=== PATIENT | female | born 1990 | race Hispanic/Latino ===

== ENCOUNTER 2018-06-04 18:45 | Emergency (ER) | payer SELFPAY ==
[2018-06-04 19:48] LABS: Urine Bacteria 20-50 /HPF (<20); Urine Culture Reflex Order NOT NEEDED
[2018-06-04 19:49] LABS: Urine Mucus 2+ /HPF (NONE SEEN)
[2018-06-04 19:49] LABS: Urine Blood 1+ (NEG); Urine Glucose NEGATIVE (NEG); Urine Protein NEGATIVE (NEG); Urine Specific Gravity 1.025 (1.005-1.030); Urine pH 5.5 (5.0-7.0)
[2018-06-04 19:55] LABS: Potassium 3.5 mmol/L (3.5-5.1)
[2018-06-04 20:03] LABS: Absolute Lymphocytes (CBC) 2.2 K/uL (0.7-4.9); Absolute Monocytes 0.4 K/uL (0.1-1.3); Absolute Neutrophil 9.4 K/uL (1.8-8.0); Basophils % 0.4 % (0-1.3); Lymphocytes % 18.1 % (15.3-44.8); MCH 29.1 pg (27.0-35.0); MCV 87.9 fL (80-100); MPV 9.1 fL (7.6-11.3); Monocytes % 3.6 % (3.3-12.3); RBC Red Blood Cell Count 4.55 M/uL (3.86-4.86)
[2018-06-04] MEDS ORDERED: KETOROLAC 30 MG/ML INJ ONE (20:04)
--- NOTE | 2018-06-04 20:09 | RAD REPORT ---
EXAM DESCRIPTION: CT - Stone Protocol - 06/04/2018 7:50 pm CLINICAL HISTORY: Abdominal pain. Lower abdominal pain. Urinary tract infection COMPARISON: October 2017 TECHNIQUE: Computed axial tomography of the abdomen pelvis was obtained without oral or IV contrast. Lack of IV and oral contrast limits evaluation of solid organs, bowel, and vessels. Coronal reformat nigel images were obtained and reviewed. All CT scans are performed using dose optimization technique as appropriate and may include automated exposure control or mA/KV adjustment according to patient size. FINDINGS: A tiny nonobstructing left renal calculus is seen. A right renal calculus is not noted. An ureteral calculus is not noted. A bladder calculus is not present. The liver, spleen, pancreas and adrenals appear grossly normal There is no evidence of diverticulitis. The appendix appears normal A 37 millimeter left ovarian cyst is suspected without significant free-fluid IMPRESSION: Tiny nonobstructing left renal calculus 37 millimeter left ovarian cyst without significant free-fluid
[2018-06-04] MEDS ORDERED: CEFTRIAXONE 1000 MG/VIAL ONE (20:23)
[2018-06-04] MEDS ORDERED: NA CHLORIDE 0.9% 100 ML IV ONE (20:23)
--- NOTE | 2018-06-04 20:25 | EDPHYS ---
Physician Documentation [facility] Name: Nisa Muñoz Age: 27 yrs Sex: Female : 1990 Arrival Date: 06/04/2018 Time: 18:48 Bed 7 Private MD: Unknown, Unknown ED Physician Tony Francis HPI: 06/04 20:21 This 27 yrs old Female presents to ER via Ambulatory with complaints of gs Urinary Problem. 20:21 The patient presents with urinary symptoms, dysuria, hesitancy, urgency. Onset: The gs symptoms/episode began/occurred 3 week(s) ago. Modifying factors: The symptoms are alleviated by nothing, the symptoms are aggravated by nothing. Associated signs and symptoms: Pertinent positives: urinary frequency, Pertinent negatives: fever. Severity of symptoms: At their worst the symptoms were moderate, in the emergency department the symptoms are unchanged. tried some amoxicillin 3 weeks ago. 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 - Social history:: Smoking status: Patient uses tobacco products, 6 cigarettes a day. - Ebola Screening: : Patient denies travel to an Ebola-affected area in the 21 days before illness onset. ROS: 20:21 Back: Positive for flank pain, bilaterally. gs 20:21 MS/extremity: Positive for swelling. 20:21 All other systems are negative. Exam: 20:21 Head/Face: Normocephalic, atraumatic. Eyes: Pupils equal round and reactive to light, gs extra-ocular motions intact. Lids and lashes normal. Conjunctiva and sclera are non-icteric and not injected. Cornea within normal limits. Periorbital areas with no swelling, redness, or edema. ENT: Nares patent. No nasal discharge, no septal abnormalities noted. Tympanic membranes are normal and external auditory canals are clear. Oropharynx with no redness, swelling, or masses, exudates, or evidence of obstruction, uvula midline. Mucous membranes moist. Neck: Trachea midline, no thyromegaly or masses palpated, and no cervical lymphadenopathy. Supple, full range of motion without nuchal rigidity, or vertebral point tenderness. No Meningismus. Chest/axilla: Normal chest wall appearance and motion. Nontender with no deformity. No lesions are appreciated. Cardiovascular: Regular rate and rhythm with a normal S1 and S2. No gallops, murmurs, or rubs. Normal PMI, no JVD. No pulse deficits. Respiratory: Lungs have equal breath sounds bilaterally, clear to auscultation and percussion. No rales, rhonchi or wheezes noted. No increased work of breathing, no retractions or nasal flaring. Abdomen/GI: Soft, non-tender, with normal bowel sounds. No distension or tympany. No guarding or rebound. No evidence of tenderness throughout. 20:21 Constitutional: The patient appears alert, awake. 20:21 Back: CVA tenderness, that is mild, is noted bilaterally. 20:21 Musculoskeletal/extremity: Circulation is intact in all extremities. Edema, trace lower extremities. Vital Signs: 18:51 BP 122 / 79; Pulse 94; Resp 17; Temp 97.6(TE); Pulse Ox 100% on R/A; Pain 10/10; tw2 19:15 BP 135 / 91; Pulse 85; Resp 16; Pulse Ox 98% ; bp 20:00 BP 128 / 74; Pulse 88; Resp 16; Pulse Ox 98% ; bp MDM: 19:14 Patient medically screened. 20:21 Differential diagnosis: urinary tract infection, arf, pyelonephritis. Data reviewed: vital signs, nurses notes. Counseling: I had a detailed discussion with the patient and/or guardian regarding: the historical points, exam findings, and any diagnostic results supporting the discharge/admit diagnosis, lab results, radiology results, the need for outpatient follow up. Response to treatment: the patient's symptoms have mildly improved after treatment, and as a result, I will discharge patient. 06/04 19:12 Order name: Urine Culture 06/04 19:12 Order name: Urine Microscopic Only; Complete Time: 20:13 06/04 19:14 Order name: CBC with Diff; Complete Time: 20:13 06/04 19:14 Order name: Basic Metabolic Panel; Complete Time: 20:13 06/04 19:44 Order name: Urine Dipstick--Ancillary (enter results); Complete Time: 20:13 sc 06/04 19:44 Order name: Urine --Ancillary (enter results); Complete Time: 20:13 mt 06/04 19:12 Order name: Urine Dipstick-Ancillary (obtain specimen); Complete Time: 19:21 bp 06/04 19:12 Order name: Urine Test (obtain specimen); Complete Time: 19:21 bp 06/04 19:15 Order name: CT Stone Protocol; Complete Time: 20:13 Administered Medications: 20:00 Drug: Ketorolac 15 mg Route: IVP; Site: right antecubital; bp 20:15 Follow up: Response: Pain is decreased bp 20:17 Drug: Rocephin - (cefTRIAXone) 1 grams Route: IVPB; Infused Over: 30 mins; Site: right bp antecubital; Disposition: 06/04/18 20:24 Discharged to Home. Impression: Tubulo-interstitial nephritis, not specified as acute or chronic, Edema, unspecified. - Condition is Stable. - Discharge Instructions: Edema, Pyelonephritis, Adult. - Prescriptions for Keflex 500 mg Oral Capsule - take 2 capsule by ORAL route every 12 hours for 7 days; 28 capsule. - Medication Reconciliation Form, Thank You Letter, Antibiotic Education, Prescription Opioid Use form. - Follow up: Germaine Hackett DO; When: 2 - 3 days; Reason: Re-evaluation by your physician. Signatures: Dispatcher [employer] Alpa Russo RN RN tw2 Tony Francis MD MD Dev Young RN RN bp Vicky Preston cc3 Corrections: (The following items were deleted from the chart) 20:40 20:24 06/04/2018 20:24 Discharged to Home. Impression: Tubulo-interstitial nephritis, cc3 not specified as acute or chronic; Edema, unspecified. Condition is Stable. Forms are Medication Reconciliation Form, Thank You Letter, Antibiotic Education, Prescription Opioid Use. Follow up: Germaine Hackett; When: 2 - 3 days; Reason: Re-evaluation by your physician. gs
--- NOTE | 2018-06-04 20:25 | ER ---
Nurse's Notes [facility] Name: Nisa Muñoz Age: 27 yrs Sex: Female : 1990 Arrival Date: 06/04/2018 Time: 18:48 Bed 7 Private MD: Unknown, Unknown Diagnosis: Tubulo-interstitial nephritis, not specified as acute or chronic;Edema, unspecified Presentation: 06/04 18:50 Presenting complaint: Patient states: i am having low back pain and lower abdomen pain, tw2 i have been having a UTI for a month, and my feet have been swelling for a month, i have an appointment in June, and i have been vomiting. Transition of care: patient was not received from another setting of care. Onset of symptoms was June 04, 2018. Risk Assessment: Do you want to hurt yourself or someone else? Patient reports no desire to harm self or others. Initial Sepsis Screen: Does the patient meet any 2 criteria? No. Patient's initial sepsis screen is negative. Does the patient have a suspected source of infection? No. Patient's initial sepsis screen is negative. Care prior to arrival: None. 18:50 Method Of Arrival: Ambulatory tw2 18:50 Acuity: MIGUEL ANGEL 3 tw2 Triage Assessment: 19:00 General: Appears in no apparent distress. uncomfortable, obese, Behavior is calm, bp cooperative, appropriate for age. 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 - Social history:: Smoking status: Patient uses tobacco products, 6 cigarettes a day. - Ebola Screening: : Patient denies travel to an Ebola-affected area in the 21 days before illness onset. Screenin:22 Abuse screen: Denies threats or abuse. Denies injuries from another. Nutritional bp screening: No deficits noted. Tuberculosis screening: No symptoms or risk factors identified. Fall Risk None identified. Assessment: 19:00 General: Appears in no apparent distress. uncomfortable, obese, Behavior is bp cooperative, appropriate for age, anxious. Pain: Complains of pain in low back area and pelvis. Neuro: Level of Consciousness is awake, alert, obeys commands, Oriented to person, place, time, situation, Appropriate for age. Cardiovascular: No deficits noted. Respiratory: Airway is patent Respiratory effort is even, unlabored, Respiratory pattern is regular, symmetrical. GI: No signs and/or symptoms were reported involving the gastrointestinal system. : Reports burning with urination, incontinence, urgency, urinary frequency. EENT: No deficits noted. Derm: No deficits noted. Musculoskeletal: Circulation, motion, and sensation intact. Range of motion: intact in all extremities. 20:01 Reassessment: PT RETURNED FROM CT. ALL CURRENT STUDIES IN PROCESS, RESULTS PENDING. bp 20:30 Reassessment: Patient appears in no apparent distress at this time. Patient and/or cc3 family updated on plan of care and expected duration. Pain level reassessed. Patient is alert, oriented x 3, equal unlabored respirations, skin warm/dry/pink. Patient ordered discharged home by Dr. Francis. IV cannula removed and patient left ER vitally stable and ambulatory. Vital Signs: 18:51 BP 122 / 79; Pulse 94; Resp 17; Temp 97.6(TE); Pulse Ox 100% on R/A; Pain 10/10; tw2 19:15 BP 135 / 91; Pulse 85; Resp 16; Pulse Ox 98% ; bp 20:00 BP 128 / 74; Pulse 88; Resp 16; Pulse Ox 98% ; bp ED Course: 18:48 Patient arrived in ED. sb2 18:48 Unknown, Unknown is Private Physician. sb2 18:51 Triage completed. tw2 18:51 Arm band placed on. tw2 19:08 Tony Francis MD is Attending Physician. gs 19:11 Dev Young, SOLITARIO is Primary Nurse. bp 19:22 Patient has correct armband on for positive identification. Bed in low position. Call bp light in reach. Side rails up X2. 19:23 Urine collected: clean catch specimen, cloudy. bp 19:30 Inserted saline lock: 20 gauge in right antecubital area, using aseptic technique. bp Blood collected. 19:30 Initial lab(s) drawn, by me, sent to lab. bp 19:47 Patient moved to NC via wheelchair. jj2 19:50 CT completed. Patient tolerated procedure well. Patient moved back from CT. jj2 19:50 CT Stone Protocol In Process Unspecified. EDMS 20:24 Germaine Hackett DO is Referral Physician. gs 20:30 No provider procedures requiring assistance completed. IV discontinued, intact, cc3 bleeding controlled, No redness/swelling at site. Pressure dressing applied. Administered Medications: 20:00 Drug: Ketorolac 15 mg Route: IVP; Site: right antecubital; bp 20:15 Follow up: Response: Pain is decreased bp 20:17 Drug: Rocephin - (cefTRIAXone) 1 grams Route: IVPB; Infused Over: 30 mins; Site: right bp antecubital; Outcome: 20:24 Discharge ordered by MD. gs 20:30 Discharged to home ambulatory. cc3 20:30 Condition: stable 20:30 Discharge instructions given to patient, Instructed on discharge instructions, follow up and referral plans. medication usage, Demonstrated understanding of instructions, follow-up care, medications, Prescriptions given X 1. 20:40 Patient left the ED. cc3 Signatures: Dispatcher [employer] EDMS Daniel Rodriguez jj2 Alpa Vitale, RN RN tw2 Tony Francis MD MD gs Peltier, Brian, RN RN Leyla Mccullough sb2 Vicky Preston cc3
== END 2018-06-04 20:40 | disposition home or self-care (01) ==
LOC: ER 18:45
DX: N12 Tubulo-interstitial nephritis, not specified as acute or chronic (principal); R60.9 Edema, unspecified; F17.210 Nicotine dependence, cigarettes, uncomplicated
CPT/HCPCS: 36415; 74176; 76377; 80048; 81003; 81015; 81025; 85025; 87086; 87088

== ENCOUNTER 2018-12-03 10:29 | Emergency (ER) | payer SELFPAY ==
--- OUTSIDE RECORDS SUMMARY | 2018-12-03 10:48 | XMS REPORT ---
:1990 [facility] [address] [place] [id number] Care Team Providers Name Role Phone Unavailable Unavailable Unavailable Problems This patient has no known problems. Allergies, Adverse Reactions, Alerts This patient has no known allergies or adverse reactions. Medications This patient has no known medications.
[2018-12-03 11:32] LABS: Absolute Lymphocytes (CBC) 2.6 K/uL (0.7-4.9); Absolute Monocytes 0.5 K/uL (0.1-1.3); Absolute Neutrophil 7.9 K/uL (1.8-8.0); Basophils % 0.7 % (0-1.3); Eosinophils % 3.3 % (0-4.4); Hematocrit 39.2 % (36.0-45.0); Lymphocytes % 22.6 % (15.3-44.8); MPV 8.7 fL (7.6-11.3); RBC Red Blood Cell Count 4.54 M/uL (3.86-4.86)
[2018-12-03 12:05] LABS: ALT/SGPT 23 U/L (12-78); AST/SGOT 13 U/L (15-37); Alkaline Phosphatase 108 U/L (45-117); BUN Blood Urea Nitrogen 8 mg/dL (7-18); Bicarbonate 25 mmol/L (21-32); Bilirubin Direct < 0.1 mg/dL (0-0.2); Bilirubin Total 0.2 mg/dL (0.2-1.0); Glucose Level 86 mg/dL (74-106); Lipase 103 U/L (73-393); Potassium 3.9 mmol/L (3.5-5.1); Protein, Total 7.1 g/dL (6.4-8.2); Sodium Level 143 mmol/L (136-145)
[2018-12-03] MEDS ORDERED: MORPHINE 4 MG/ML SYR ONE (12:24)
[2018-12-03] MEDS ORDERED: ONDANSETRON 4 MG/2 ML VIAL ONE (12:25)
[2018-12-03] MEDS ORDERED: NA CHLORIDE 0.9% 1,000 ML ONE (12:25)
[2018-12-03] MEDS ORDERED: FAMOTIDINE 20 MG/2 ML VIAL IV ONE (12:25)
--- NOTE | 2018-12-03 14:17 | RAD REPORT ---
EXAM DESCRIPTION: CT - Abdomen Pelvis W Contrast - 12/03/2018 2:05 pm CLINICAL HISTORY: Abdominal pain, epigastric pain COMPARISON: October 2016 TECHNIQUE: Biphasic, helical CT imaging of the abdomen and pelvis was performed following 100 ml non -ionic IV contrast. Oral contrast was given. All CT scans are performed using dose optimization technique as appropriate and may include automated exposure control or mA/KV adjustment according to patient size. FINDINGS: No suspicious findings in the lung bases. The liver, spleen, and pancreas show no suspicious findings. Gallbladder and biliary tree are also wi thout suspicious finding. Symmetric renal function is seen with no hydronephrosis or suspicious renal mass. No pyelonephritis o r acute parenchymal process. Urinary bladder is fully contracted limiting assessment. No bladder calc ulus seen. Uterus and ovaries show no suspicious findings. Left ovarian calcifications are stable. No adrenal abnormalities. No dilated bowel loops or bowel wall thickening. No appendicitis. No free air, free fluid or inflamma tory stranding. No hernia, mass or bulky lymphadenopathy. No suspicious bony findings. IMPRESSION: Contrast enhanced CT abdomen and pelvis showing no significant or suspicious finding. No significant change from comparison.
[2018-12-03 14:44] LABS: Urine Blood 2+ (NEG); Urine Glucose NEGATIVE (NEG); Urine Protein NEGATIVE (NEG); Urine pH 6.5 (5.0-7.0)
--- NOTE | 2018-12-03 15:47 | ER ---
Nurse's Notes [facility] Name: Nisa Muñoz Age: 28 yrs Sex: Female : 1990 Arrival Date: 12/03/2018 Time: 10:34 Bed 18 Private MD: Diagnosis: Upper abdominal pain, unspecified Presentation: 12/03 10:48 Presenting complaint: Patient states: epigastric and RUQ pain x 1 day. c/o n/d. sv Transition of care: patient was not received from another setting of care. Onset of symptoms was December 02, 2018. Care prior to arrival: None. 10:48 Method Of Arrival: Ambulatory sv 10:48 Acuity: MIGUEL ANGEL 3 sv 17:02 Risk Assessment: Do you want to hurt yourself or someone else? Patient reports no aj1 desire to harm self or others. Initial Sepsis Screen: Does the patient meet any 2 criteria? No. Patient's initial sepsis screen is negative. Does the patient have a suspected source of infection? Yes: Acute abdominal pain. Triage Assessment: 10:49 General: Appears in no apparent distress. uncomfortable, well developed, Behavior is. sv Pain: Complains of pain in epigastric area and right upper quadrant Pain currently is 7 out of 10 on a pain scale. Neuro: Level of Consciousness is awake, alert, obeys commands, Oriented to person, place, time, situation. Respiratory: Respiratory effort is even, unlabored, Respiratory pattern is regular, symmetrical. GI: Reports diarrhea, nausea. Historical: - Allergies: 10:49 NKA; sv - PMHx: 10:49 None; sv - PSHx: 10:49 ; Tubal ligation; sv - Immunization history:: Adult Immunizations up to date. - Social history:: Smoking status: unknown. - Ebola Screening: : Patient denies travel to an Ebola-affected area in the 21 days before illness onset. Screenin:21 Abuse screen: Denies threats or abuse. Denies injuries from another. Nutritional aj1 screening: No deficits noted. Tuberculosis screening: No symptoms or risk factors identified. 17:02 Fall Risk None identified. aj1 Assessment: 11:21 General: Appears in no apparent distress. uncomfortable, Behavior is calm, cooperative, aj1 appropriate for age. Pain: Complains of pain in right upper quadrant and epigastric area Pain radiates to back Quality of pain is described as heavy, pressure, sharp, Is intermittent. Neuro: Level of Consciousness is awake, alert, obeys commands, Oriented to person, place, time, situation. Cardiovascular: Patient's skin is warm and dry. Respiratory: Airway is patent Respiratory effort is even, unlabored, Respiratory pattern is regular, symmetrical. GI: Abdomen is non-distended, Bowel sounds present X 4 quads. Abd is soft X 4 quads Abdomen is tender to palpation in epigastric area and right upper quadrant Reports diarrhea, nausea, Patient currently denies vomiting. : No signs and/or symptoms were reported regarding the genitourinary system. EENT: No signs and/or symptoms were reported regarding the EENT system. Derm: No signs and/or symptoms reported regarding the dermatologic system. Skin is pink, warm \T\ dry. normal. Musculoskeletal: No signs and/or symptoms reported regarding the musculoskeletal system. Circulation, motion, and sensation intact. 12:22 Reassessment: PO CONTRAST COMPLETED, CT NOTIFIED. bp 12:54 Reassessment: Patient appears in no apparent distress at this time. No changes from aj1 previously documented assessment. Patient and/or family updated on plan of care and expected duration. Pain level reassessed. Patient is alert, oriented x 3, equal unlabored respirations, skin warm/dry/pink. Patient reports that her pain has decreased to a tolerable level. 13:45 Reassessment: Patient appears in no apparent distress at this time. No changes from aj1 previously documented assessment. Patient and/or family updated on plan of care and expected duration. Pain level reassessed. Patient is alert, oriented x 3, equal unlabored respirations, skin warm/dry/pink. 14:45 Reassessment: Patient appears in no apparent distress at this time. No changes from aj1 previously documented assessment. Patient and/or family updated on plan of care and expected duration. Pain level reassessed. Patient is alert, oriented x 3, equal unlabored respirations, skin warm/dry/pink. 15:30 Reassessment: Patient states that her pain is coming back, but she doesn't want the aj1 morphine because she does not like the way that it makes her feel. Notified SOLEDAD Harris. 16:45 Reassessment: Patient appears in no apparent distress at this time. No changes from aj1 previously documented assessment. Patient and/or family updated on plan of care and expected duration. Pain level reassessed. Patient is alert, oriented x 3, equal unlabored respirations, skin warm/dry/pink. 17:02 Reassessment: Patient states that she is tolerating drinking liquids and she is feeling aj1 better, she is ready to be discharged. Vital Signs: 10:49 BP 120 / 62; Pulse 79; Resp 22; Temp 97.4; Pulse Ox 99% ; Weight 104.33 kg; Height 5 sv ft. 1 in. (154.94 cm); Pain 7/10; 11:45 BP 110 / 57; Pulse 79; Resp 18; Pulse Ox 100% ; aj1 12:45 BP 114 / 72; Pulse 70; Resp 18; Pulse Ox 100% on R/A; aj1 13:45 BP 101 / 58; Pulse 75; Resp 18; Pulse Ox 100% on R/A; aj1 14:45 BP 108 / 70; Pulse 67; Resp 18; Pulse Ox 100% on R/A; aj1 15:45 BP 105 / 71; Pulse 82; Resp 18; Pulse Ox 100% on R/A; aj1 16:45 BP 100 / 64; Pulse 70; Resp 18; Pulse Ox 100% on R/A; aj1 10:49 Body Mass Index 43.46 (104.33 kg, 154.94 cm) sv ED Course: 10:34 Patient arrived in ED. tw3 10:48 Triage completed. sv 10:49 Arm band placed on. sv 10:57 Wolfgang Hines PA is PHCP. cp 10:57 Britton Gallego MD is Attending Physician. cp 11:00 Veronica Rouse, RN is Primary Nurse. aj1 11:21 Patient has correct armband on for positive identification. Bed in low position. Call aj1 light in reach. Side rails up X 1. 11:21 No provider procedures requiring assistance completed. Initial lab(s) drawn, by , jon sent to lab. Urine collected:. Inserted saline lock: 22 gauge in right antecubital area, using aseptic technique. Blood collected. 12:08 US Abdomen Limited In Process Unspecified. EDMS 14:06 CT Abd/Pelvis - W/Contrast: give oral contrast In Process Unspecified. EDMS 15:45 Britton Tim MD is Referral Physician. cp 17:02 IV discontinued, intact, bleeding controlled, No redness/swelling at site. Pressure aj1 dressing applied. Administered Medications: 12:19 Drug: NS 0.9% 1000 ml Route: IV; Rate: 1 bolus; Site: right antecubital; bp 17:00 Follow up: IV Status: Completed infusion; IV Intake: 1000ml aj1 12:20 Drug: morphine 4 mg Route: IVP; Site: right antecubital; bp 15:52 Follow up: Response: No adverse reaction; Pain is decreased aj1 12:21 Drug: Zofran 4 mg Route: IVP; Site: right antecubital; bp 15:52 Follow up: Response: No adverse reaction aj1 12:21 Drug: Pepcid 20 mg Route: IVP; Site: right antecubital; bp 15:52 Follow up: Response: No adverse reaction; Pain is decreased aj1 15:51 Drug: TORadol 30 mg Route: IVP; Site: right antecubital; aj1 17:01 Follow up: Response: No adverse reaction aj1 15:52 Drug: GI Cocktail without - (Maalox Suspension 30 ml, Lidocaine Liquid 2 % 15 aj1 ml) Route: PO; 17:01 Follow up: Response: No adverse reaction aj1 Intake: 17:00 IV: 1000ml; Total: 1000ml. aj1 Outcome: 15:46 Discharge ordered by . cp 17:03 Discharged to home ambulatory. aj1 17:03 Condition: good 17:03 Discharge instructions given to patient, Instructed on discharge instructions, follow up and referral plans. Demonstrated understanding of instructions, follow-up care, Prescriptions given X 2. 17:05 Patient left the ED. aj1 Signatures: Dispatcher [employer] EDMS Veronica Rouse RN RN aj1 Tawny Sloan RN RN Wolfgang Tello PA PA marty Mcwilliams, Antoinette tw3 Dev Young RN RN bp
--- NOTE | 2018-12-03 15:47 | EDPHYS ---
Physician Documentation [facility] Name: Nisa Muñoz Age: 28 yrs Sex: Female : 1990 Arrival Date: 12/03/2018 Time: 10:34 Bed 18 Private MD: ED Physician Britton Gallego HPI: 12/03 11:30 This 28 yrs old Female presents to ER via Ambulatory with complaints of cp Abdominal Pain. 11:30 The patient presents with abdominal pain in the epigastric area, in the right upper cp quadrant. Onset: The symptoms/episode began/occurred last night. The symptoms radiate to back. Associated signs and symptoms: Pertinent positives: diarrhea, nausea, Pertinent negatives: blood in stools, chest pain, constipation, dysuria, fever, palpitations, vomiting. The symptoms are described as constant. Modifying factors: the symptoms are aggravated by pressure. Severity of pain: in the emergency department the pain is actually worse moderately. Historical: - Allergies: 10:49 NKA; sv - PMHx: 10:49 None; sv - PSHx: 10:49 ; Tubal ligation; sv - Immunization history:: Adult Immunizations up to date. - Social history:: Smoking status: unknown. - Ebola Screening: : Patient denies travel to an Ebola-affected area in the 21 days before illness onset. ROS: 11:31 Eyes: Negative for injury, pain, redness, and discharge. cp 11:31 Constitutional: Negative for body aches, chills, fever, poor PO intake. 11:31 ENT: Negative for drainage from ear(s), ear pain, sore throat, difficulty swallowing, difficulty handling secretions. 11:31 Cardiovascular: Negative for chest pain, edema, palpitations. 11:31 Respiratory: Negative for cough, shortness of breath, wheezing. 11:31 Abdomen/GI: Positive for abdominal pain, nausea, diarrhea, Negative for vomiting, constipation, black/tarry stool, rectal bleeding. 11:31 Back: Positive for radiated pain, of the mid back area. 11:31 : Negative for urinary symptoms. 11:31 Skin: Negative for cellulitis, rash. 11:31 Neuro: Negative for altered mental status, headache, weakness. 11:31 All other systems are negative. Exam: 11:33 Head/Face: Normocephalic, atraumatic. cp 11:33 Constitutional: The patient appears in no acute distress, alert, awake, non-diaphoretic, non-toxic, well developed, well nourished, obese, uncomfortable. 11:33 Eyes: Periorbital structures: appear normal, Conjunctiva: normal, no exudate, no injection, Sclera: no appreciated abnormality, Lids and lashes: appear normal, bilaterally. 11:33 ENT: External ear(s): are unremarkable, Nose: is normal, Mouth: Lips: moist, Oral mucosa: pink and intact, moist, Posterior pharynx: Airway: no evidence of obstruction, patent. 11:33 Neck: ROM/movement: is normal, is supple, without pain, no range of motions limitations, no nuchal rigidity. 11:33 Chest/axilla: Inspection: normal, Palpation: is normal, no crepitus, no tenderness. 11:33 Cardiovascular: Rate: normal, Rhythm: regular. 11:33 Respiratory: the patient does not display signs of respiratory distress, Respirations: normal, no use of accessory muscles, no retractions, no splinting, no tachypnea, labored breathing, is not present, Breath sounds: are clear throughout, no decreased breath sounds, no stridor, no wheezing. 11:33 Abdomen/GI: Inspection: abdomen appears normal, Bowel sounds: active, all quadrants, Palpation: soft, in all quadrants, severe abdominal tenderness, in the epigastric area and right upper quadrant, rebound tenderness, is not appreciated, voluntary guarding, is elicited in the epigastric area and right upper quadrant. 11:33 Back: pain, that is moderate, of the mid back area. 11:33 Skin: no rash present. Vital Signs: 10:49 BP 120 / 62; Pulse 79; Resp 22; Temp 97.4; Pulse Ox 99% ; Weight 104.33 kg; Height 5 sv ft. 1 in. (154.94 cm); Pain 7/10; 11:45 BP 110 / 57; Pulse 79; Resp 18; Pulse Ox 100% ; aj1 12:45 BP 114 / 72; Pulse 70; Resp 18; Pulse Ox 100% on R/A; aj1 13:45 BP 101 / 58; Pulse 75; Resp 18; Pulse Ox 100% on R/A; aj1 14:45 BP 108 / 70; Pulse 67; Resp 18; Pulse Ox 100% on R/A; aj1 15:45 BP 105 / 71; Pulse 82; Resp 18; Pulse Ox 100% on R/A; aj1 16:45 BP 100 / 64; Pulse 70; Resp 18; Pulse Ox 100% on R/A; aj1 10:49 Body Mass Index 43.46 (104.33 kg, 154.94 cm) sv MDM: 11:10 Patient medically screened. cp 11:38 Differential diagnosis: appendicitis, cholecystitis, Cholelithiasis, gastritis, cp non-specific abd pain, pancreatitis, Peptic Ulcer Disease, Perf. Duodenal Ulcer, Perf. Gastric Ulcer, Ureterolithiasis, urinary tract infection. 15:45 Data reviewed: vital signs, nurses notes, lab test result(s), radiologic studies, CT cp scan, ultrasound. 15:45 Counseling: I had a detailed discussion with the patient and/or guardian regarding: the cp historical points, exam findings, and any diagnostic results supporting the discharge/admit diagnosis, lab results, radiology results, to return to the emergency department if symptoms worsen or persist or if there are any questions or concerns that arise at home. Response to treatment: the patient's symptoms have markedly improved after treatment, and as a result, I will discharge patient. Special discussion: Based on the patient's Hx, exam, and Dx evaluation, there is no indication for emergent surgery or inpatient Tx. It is understood by the patient/guardian that if the Sx's persist or worsen they need to return immediately for re-evaluation. ED course: VSS. Pain and nausea improved with IV fluids and pain meds. Radiology studies negative for acute findings. 12/03 10:58 Order name: Basic Metabolic Panel; Complete Time: 12:13 cp 12/03 12:13 Interpretation: Normal except: CL 109; CA 8.1. 12/03 10:58 Order name: CBC with Diff; Complete Time: 12:13 12/03 12:13 Interpretation: Normal except: WBC 11.3. 12/03 10:58 Order name: Creatinine for Radiology; Complete Time: 12:13 12/03 10:58 Order name: Hepatic Function; Complete Time: 12:13 12/03 12:14 Interpretation: Normal except: AST 13; ALB 3.0; GLOB 4.1; A/G 0.7. cp 12/03 10:58 Order name: Lipase; Complete Time: 12:13 cp 12/03 12:14 Interpretation: Within normal limits: LIP 103. cp 12/03 11:28 Order name: Urine Dipstick--Ancillary (enter results); Complete Time: 15:30 kj1 12/03 11:29 Order name: Urine --Ancillary (enter results); Complete Time: 15:30 kj1 12/03 11:29 Order name: US Abdomen Limited cp 12/03 11:29 Order name: Magnesium; Complete Time: 15:30 cp 12/03 12:06 Order name: CT Abd/Pelvis - W/Contrast: give oral contrast; Complete Time: 15:30 cp 12/03 10:58 Order name: IV Saline Lock; Complete Time: 11:20 cp 12/03 10:58 Order name: Labs collected and sent; Complete Time: 11:20 cp 12/03 10:58 Order name: Urine Dipstick-Ancillary (obtain specimen); Complete Time: 11:27 cp 12/03 10:58 Order name: Urine Test (obtain specimen); Complete Time: 11:27 cp 12/03 15:31 Order name: PO challenge; Complete Time: 17:00 cp Administered Medications: 12:19 Drug: NS 0.9% 1000 ml Route: IV; Rate: 1 bolus; Site: right antecubital; bp 17:00 Follow up: IV Status: Completed infusion; IV Intake: 1000ml aj1 12:20 Drug: morphine 4 mg Route: IVP; Site: right antecubital; bp 15:52 Follow up: Response: No adverse reaction; Pain is decreased aj1 12:21 Drug: Zofran 4 mg Route: IVP; Site: right antecubital; bp 15:52 Follow up: Response: No adverse reaction aj1 12:21 Drug: Pepcid 20 mg Route: IVP; Site: right antecubital; bp 15:52 Follow up: Response: No adverse reaction; Pain is decreased aj1 15:51 Drug: TORadol 30 mg Route: IVP; Site: right antecubital; aj1 17:01 Follow up: Response: No adverse reaction aj1 15:52 Drug: GI Cocktail without - (Maalox Suspension 30 ml, Lidocaine Liquid 2 % 15 aj1 ml) Route: PO; 17:01 Follow up: Response: No adverse reaction aj1 Disposition: 12/04 06:50 Co-signature as Attending Physician, Britton Gallego MD I agree with the assessment and nh plan of care. Disposition: 12/03/18 15:46 Discharged to Home. Impression: Upper abdominal pain, unspecified. - Condition is Stable. - Discharge Instructions: Abdominal Pain, Adult. - Prescriptions for Protonix 40 mg Oral Tablet, Delayed Release (E.C.) - take 1 tablet by ORAL route once daily for 8-10 days; 10 tablet. Zofran 4 mg Oral Tablet - take 1 tablet by ORAL route every 12 hours As needed; 20 tablet. - Medication Reconciliation Form, Thank You Letter, Antibiotic Education, Prescription Opioid Use form. - Follow up: Britton Tim MD; When: 2 - 3 days; Reason: Worsening of condition. - Problem is new. - Symptoms have improved. Signatures: Dispatcher [employer] EDMS Veronica Rouse RN RN aj1 Tawny Sloan RN SOLITARIO sv Wolfgang Hines, PA PA cp Britton Gallego MD MD wa Peltier, Brian RN RN bp Corrections: (The following items were deleted from the chart) 12/03 12:13 12:13 Normal except: CL 109. cp cp 17:05 15:46 12/03/2018 15:46 Discharged to Home. Impression: Upper abdominal pain, aj1 unspecified. Condition is Stable. Forms are Medication Reconciliation Form, Thank You Letter, Antibiotic Education, Prescription Opioid Use. Follow up: Britton Tim; When: 2 - 3 days; Reason: Worsening of condition. Problem is new. Symptoms have improved. cp
[2018-12-03] MEDS ORDERED: LIDOCAINE VISCOUS 2% SOLN 15 ML UDC ONE (15:55)
[2018-12-03] MEDS ORDERED: KETOROLAC 30 MG/ML INJ ONE (15:55)
[2018-12-03] MEDS ORDERED: MAGNES/ALUMIN/SIMET 30ML UCUP ONE (15:56)
== END 2018-12-03 17:05 | disposition home or self-care (01) ==
LOC: ER 10:29
DX: R10.10 Upper abdominal pain, unspecified (principal); R19.7 Diarrhea, unspecified
CPT/HCPCS: 36415; 74177; 76705; 80048; 80076; 81003; 81025; 83690; 83735; 85025; 96361; 96374; 96375; 99284; J2405; J7030; Q9967

== ENCOUNTER 2019-03-04 14:04 | Emergency (ER) | payer SELFPAY ==
--- OUTSIDE RECORDS SUMMARY | 2019-03-04 14:08 | XMS REPORT ---
:1990 [facility] Address [address] [place] [id number] Care Team Providers Name Role Phone Unavailable Unavailable Unavailable Problems This patient has no known problems. Allergies, Adverse Reactions, Alerts This patient has no known allergies or adverse reactions. Medications This patient has no known medications.
[2019-03-04] MEDS ORDERED: ALBUTEROL 2.5 MG/3 ML NEB SOL ONE (15:04)
[2019-03-04] MEDS ORDERED: IPRATROPIUM BROM 0.5MG/2.5ML ONE (15:04)
--- NOTE | 2019-03-04 15:52 | ER ---
Nurse's Notes [facility] Name: Nisa Muñoz Age: 28 yrs Sex: Female : 1990 Arrival Date: 03/04/2019 Time: 14:06 Bed 27 Private MD: Diagnosis: Acute upper respiratory infection, unspecified Presentation: 03/04 14:18 Presenting complaint: Patient states: Cough, cold, congestion, sore throat for 4 days. aj Denies fever. Care prior to arrival: None. 14:18 Acuity: MIGUEL ANGEL 4 aj 14:34 Transition of care: patient was not received from another setting of care. Onset of ca1 symptoms was March 01, 2019. Risk Assessment: Do you want to hurt yourself or someone else? Patient reports no desire to harm self or others. Initial Sepsis Screen: Does the patient meet any 2 criteria? No. Patient's initial sepsis screen is negative. Does the patient have a suspected source of infection? No. Patient's initial sepsis screen is negative. 14:34 Method Of Arrival: Ambulatory ca1 Triage Assessment: 14:19 General: Appears in no apparent distress. comfortable, Behavior is calm, cooperative, aj appropriate for age. Pain: Denies pain. EENT: Reports nasal congestion nasal discharge. Neuro: Level of Consciousness is awake, alert, obeys commands, Oriented to person, place, time, situation, Appropriate for age Reports headache. Respiratory: Reports cough that is. Derm: Skin is intact, is healthy with good turgor, Skin is pink, warm \T\ dry. normal. 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 - Social history:: Smoking status: Patient/guardian denies using tobacco. - Ebola Screening: : Patient negative for fever greater than or equal to 101.5 degrees Fahrenheit, and additional compatible Ebola Virus Disease symptoms Patient denies exposure to infectious person Patient denies travel to an Ebola-affected area in the 21 days before illness onset. Screenin:30 Abuse screen: Denies threats or abuse. Denies injuries from another. Nutritional ca1 screening: No deficits noted. Tuberculosis screening: No symptoms or risk factors identified. Fall Risk None identified. Assessment: 14:30 General: Appears in no apparent distress. comfortable, Behavior is calm, cooperative, ca1 appropriate for age. General: Reports chills for fever for > 3 days, feeling ill for > 3 days. Pain: Denies pain. Pain:. Neuro: Level of Consciousness is awake, alert, obeys commands, Oriented to person, place, time, situation. Cardiovascular: Heart tones S1 S2 present Capillary refill < 3 seconds Patient's skin is warm and dry. Cardiovascular: Pulses are all present. Respiratory: Airway is patent Respiratory effort is even, unlabored, Respiratory pattern is regular, symmetrical, Breath sounds are clear bilaterally. Respiratory: Reports cough that is non-productive. GI: Abdomen is round non-distended, Bowel sounds present X 4 quads. Abd is soft and non tender X 4 quads. : No deficits noted. No signs and/or symptoms were reported regarding the genitourinary system. EENT: Reports nasal congestion since 3-4 days ago nasal discharge that is yellow. Derm: Skin is intact, is healthy with good turgor, Skin is pink, warm \T\ dry. Musculoskeletal: Circulation, motion, and sensation intact. Capillary refill < 3 seconds, Range of motion: intact in all extremities. 15:25 Reassessment: Patient appears in no apparent distress at this time. Patient and/or ca1 family updated on plan of care and expected duration. Pain level reassessed. Patient is alert, oriented x 3, equal unlabored respirations, skin warm/dry/pink. 16:05 Reassessment: Patient appears in no apparent distress at this time. Patient is alert, ca1 oriented x 3, equal unlabored respirations, skin warm/dry/pink. Vital Signs: 14:19 BP 127 / 68; Pulse 94; Resp 18; Temp 97.6; Pulse Ox 97% on R/A; Weight 117.93 kg; aj Height 5 ft. 1 in. (154.94 cm); 15:25 BP 128 / 73; Pulse 90; Resp 19 S; Temp 98.7(O); Pulse Ox 100% ; ca1 14:19 Body Mass Index 49.13 (117.93 kg, 154.94 cm) aj ED Course: 14:06 Patient arrived in ED. as 14:19 Triage completed. aj 14:19 Arm band placed on right wrist. Patient placed in an exam room. aj 14:23 Carmella Chris, RN is Primary Nurse. ca1 14:26 Angelika Reina FNP-C is [facility]. kb 14:26 Darrell Aparicio MD is Attending Physician. kb 14:30 Patient has correct armband on for positive identification. Bed in low position. Call ca1 light in reach. Side rails up X 1. Pulse ox on. NIBP on. 14:30 No provider procedures requiring assistance completed. ca1 14:33 Flu and/or RSV swab sent to lab. Strep swab sent to lab. lt1 14:33 Flu Sent. lt1 14:33 Strep Sent. lt1 16:05 Patient did not have IV access during this emergency room visit. ca1 Administered Medications: 14:51 Drug: Albuterol 2.5 mg Route: Inhalation; ca1 14:51 Drug: AtroVENT Aerosol 0.5 mg Route: Inhalation; ca1 Outcome: 15:51 Discharge ordered by MD. kb 16:05 Discharged to home ambulatory. ca1 16:05 Condition: stable 16:05 Discharge instructions given to patient, Instructed on discharge instructions, follow up and referral plans. Demonstrated understanding of instructions, follow-up care. 16:17 Patient left the ED. ca1 Signatures: Angelika Reina FNP-C FNP-Ckb Myers, Amanda, RN RN aj Martinez, Amelia as Carmella Chris RN RN ca1 Helen Weaver lt1
--- NOTE | 2019-03-04 15:53 | EDPHYS ---
Physician Documentation [facility] Name: Nisa Muñoz Age: 28 yrs Sex: Female : 1990 Arrival Date: 03/04/2019 Time: 14:06 Bed 27 Private MD: ED Physician Darrell Aparicio HPI: 03/04 14:42 This 28 yrs old Female presents to ER via Ambulatory with complaints of Cold kb Symptoms. 14:42 The patient or guardian reports cough, that is intermittent, described as mild, with no kb sputum, flu symptoms. Onset: The symptoms/episode began/occurred 4 day(s) ago. Severity of symptoms: At their worst the symptoms were mild, moderate, in the emergency department the symptoms are unchanged. Modifying factors: The symptoms are alleviated by nothing, the symptoms are aggravated by nothing. Associated signs and symptoms: Pertinent positives: earache, fever, rhinorrhea, sore throat, Pertinent negatives: chest pain, diarrhea, nausea, vomiting. The patient has not experienced similar symptoms in the past. The patient has not recently seen a physician. "I've had fevers, cough, runny nose, a lot of boogers, ears popping, sore throat, body aches since Saturday. 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 I've been taking mucinex and thought I should be better by now, but I'm not. The mucinex has been controlling the fever though.". 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 - Social history:: Smoking status: Patient/guardian denies using tobacco. - Ebola Screening: : Patient negative for fever greater than or equal to 101.5 degrees Fahrenheit, and additional compatible Ebola Virus Disease symptoms Patient denies exposure to infectious person Patient denies travel to an Ebola-affected area in the 21 days before illness onset. ROS: 14:46 Cardiovascular: Negative for chest pain, palpitations, and edema, Abdomen/GI: Negative kb for abdominal pain, nausea, vomiting, diarrhea, and constipation, Back: Negative for injury and pain, : Negative for injury, bleeding, discharge, and swelling, MS/Extremity: Negative for injury and deformity, Skin: Negative for injury, rash, and discoloration, Neuro: Negative for headache, weakness, numbness, tingling, and seizure. 14:46 Constitutional: Positive for body aches, chills, fatigue, fever, malaise, Negative for poor PO intake, weight loss. 14:46 ENT: Positive for rhinorrhea, sinus congestion, sore throat. 14:46 Respiratory: Positive for cough, with no reported sputum, Negative for dyspnea on exertion, hemoptysis, orthopnea, pleurisy, shortness of breath, sputum production, wheezing. Exam: 14:47 Constitutional: This is a well developed, well nourished patient who is awake, alert, kb and in no acute distress. Head/Face: Normocephalic, atraumatic. Neck: Trachea midline, no thyromegaly or masses palpated, and no cervical lymphadenopathy. Supple, full range of motion without nuchal rigidity, or vertebral point tenderness. No Meningismus. Chest/axilla: Normal chest wall appearance and motion. Nontender with no deformity. No lesions are appreciated. Cardiovascular: Regular rate and rhythm with a normal S1 and S2. No gallops, murmurs, or rubs. Normal PMI, no JVD. No pulse deficits. Respiratory: Lungs have equal breath sounds bilaterally, clear to auscultation and percussion. No rales, rhonchi or wheezes noted. No increased work of breathing, no retractions or nasal flaring. Abdomen/GI: Soft, non-tender, with normal bowel sounds. No distension or tympany. No guarding or rebound. No evidence of tenderness throughout. Skin: Warm, dry with normal turgor. Normal color with no rashes, no lesions, and no evidence of cellulitis. MS/ Extremity: Pulses equal, no cyanosis. Neurovascular intact. Full, normal range of motion. Neuro: Awake and alert, GCS 15, oriented to person, place, time, and situation. Cranial nerves II-XII grossly intact. Motor strength 5/5 in all extremities. Sensory grossly intact. Cerebellar exam normal. Normal gait. 14:47 ENT: External ear(s): are unremarkable, Ear canal(s): are normal, TM's: fluid levels, bilaterally. Vital Signs: 14:19 BP 127 / 68; Pulse 94; Resp 18; Temp 97.6; Pulse Ox 97% on R/A; Weight 117.93 kg; aj Height 5 ft. 1 in. (154.94 cm); 15:25 BP 128 / 73; Pulse 90; Resp 19 S; Temp 98.7(O); Pulse Ox 100% ; ca1 14:19 Body Mass Index 49.13 (117.93 kg, 154.94 cm) aj MDM: 14:26 Patient medically screened. kb 14:45 Data reviewed: vital signs, nurses notes. Data interpreted: Pulse oximetry: on room air kb is 97 %. Interpretation: normal. 15:51 Counseling: I had a detailed discussion with the patient and/or guardian regarding: the kb historical points, exam findings, and any diagnostic results supporting the discharge/admit diagnosis, lab results, the need for outpatient follow up, a family practitioner, to return to the emergency department if symptoms worsen or persist or if there are any questions or concerns that arise at home. 03/04 14:26 Order name: Flu; Complete Time: 15:34 kb 03/04 14:26 Order name: Strep; Complete Time: 15:51 kb 03/04 15:52 Order name: Throat Culture EDMS Administered Medications: 14:51 Drug: Albuterol 2.5 mg Route: Inhalation; ca1 14:51 Drug: AtroVENT Aerosol 0.5 mg Route: Inhalation; ca1 Disposition: 17:16 Co-signature as Attending Physician, Darrell Aparicio MD I agree with the assessment and kdr plan of care. Disposition: 03/04/19 15:51 Discharged to Home. Impression: Acute upper respiratory infection, unspecified. - Condition is Stable. - Discharge Instructions: Upper Respiratory Infection, Adult, [id number], Viral Respiratory Infection, [id number]. - Medication Reconciliation Form, Thank You Letter, Antibiotic Education, Prescription Opioid Use, Work release form form. - Follow up: Emergency Department; When: As needed; Reason: Worsening of condition. Follow up: Private Physician; When: 2 - 3 days; Reason: Recheck today's complaints, Continuance of care, Re-evaluation by your physician. - Notes: Use Flonase daily Take zyrtec, claritin or tre as directed Signatures: Dispatcher [employer] EDMS Angelika Reina FNP-C FNP-Sandra Luong, RN RN aj Darrell Aparicio MD MD kdr Carmella Chris RN RN ca1 Corrections: (The following items were deleted from the chart) 16:17 15:51 03/04/2019 15:51 Discharged to Home. Impression: Acute upper respiratory ca1 infection, unspecified. Condition is Stable. Forms are Medication Reconciliation Form, Thank You Letter, Antibiotic Education, Prescription Opioid Use. Follow up: Emergency Department; When: As needed; Reason: Worsening of condition. Follow up: Private Physician; When: 2 - 3 days; Reason: Recheck today's complaints, Continuance of care, Re-evaluation by your physician. kb
== END 2019-03-04 16:17 | disposition home or self-care (01) ==
LOC: ER 14:04
DX: J06.9 Acute upper respiratory infection, unspecified (principal)
CPT/HCPCS: 87070; 87081; 87804; 99284

== ENCOUNTER 2020-02-08 18:45 | Emergency (ER) | payer SELFPAY ==
--- OUTSIDE RECORDS SUMMARY | 2020-02-08 19:46 | XMS REPORT | Continuity of Care Document ---
:[address] [facility] t Address [address] [place] [address] Care Team Providers Name Role Phone Giuseppe Murcia Attending Clinician Doctor Unassigned, Name Attending Clinician Unavailable Problems This patient has no known problems. Allergies, Adverse Reactions, Alerts This patient has no known allergies or adverse reactions. Medications This patient has no known medications. Procedures This patient has no known procedures. Encounters Start End Encounter Admission Attending Care Care Encounter Source Date/Time Date/Time Type Type Clinicians Facility Department ID 2019-04-26 2019-04-26 [facility] [id number] 20:05:36 21:55:00 [place] [id number] [place] [id number] [place] [id number] 2019-04-26 2019-04-26 Orders Doctor BELLO [id number] 00:00:00 00:00:00 Only UnassKATIE veronica [id number] Ayden [facility] [id number] Results This patient has no known results.
[2020-02-08 22:40] LABS: Urine Blood TRACE (NEG); Urine Glucose NEGATIVE (NEG); Urine Protein NEGATIVE (NEG); Urine Specific Gravity >1.030 (1.005-1.030)
[2020-02-08 22:41] LABS: Urine Amorphous Sediment 1+ /HPF (NONE SEEN); Urine Bacteria <20 /HPF (<20); Urine Culture Reflex Order NOT NEEDED; Urine Mucus 2+ /HPF (NONE SEEN)
[2020-02-08 23:00] LABS: ALT/SGPT 30 U/L (12-78); AST/SGOT 19 U/L (15-37); Albumin 3.3 g/dL (3.4-5.0); Alkaline Phosphatase 109 U/L (45-117); BUN Blood Urea Nitrogen 10 mg/dL (7-18); Bicarbonate 24 mmol/L (21-32); Bilirubin Direct < 0.1 mg/dL (0-0.2); Bilirubin Total 0.1 mg/dL (0.2-1.0); Glucose Level 85 mg/dL (74-106); Lipase 151 U/L (73-393); Potassium 3.9 mmol/L (3.5-5.1); Protein, Total 7.6 g/dL (6.4-8.2); Sodium Level 140 mmol/L (136-145)
[2020-02-08 23:01] LABS: Absolute Lymphocytes (CBC) 3.5 K/uL (0.7-4.9); Basophils % 0.5 % (0-1.3); Hematocrit 40.6 % (36.0-45.0); Lymphocytes % 29.8 % (15.3-44.8); MPV 9.4 fL (7.6-11.3); RBC Red Blood Cell Count 4.75 M/uL (3.86-4.86)
[2020-02-08] MEDS ORDERED: KETOROLAC 30 MG/ML INJ ONE (23:16)
[2020-02-08 23:17] LABS: Magnesium 2.3 mg/dL (1.8-2.4)
[2020-02-08] MEDS ORDERED: CEFTRIAXONE/SWI 1gm 1 GM/10 ML SYR ONE (23:20)
--- NOTE | 2020-02-08 23:44 | RAD REPORT ---
EXAM DESCRIPTION: RAD - Chest Single View - 02/08/2020 10:45 pm CLINICAL HISTORY: SOB Chest pain. COMPARISON: Chest Pa And Lat (2 Views) dated 10/21/2017; Chest Single View dated 11/06/2016 FINDINGS: Portable technique limits examination quality. The lungs are grossly clear. The heart is normal in size. No displaced fractures. IMPRESSION: No acute intrathoracic process suspected.
--- NOTE | 2020-02-09 00:49 | ER ---
Nurse's Notes [facility] Name: Nisa Muñoz Age: 29 yrs Sex: Female : 1990 Arrival Date: 02/08/2020 Time: 18:49 Bed 18 Private MD: Diagnosis: Urinary tract infection, site not specified;Low back pain Presentation: 02/07 18:55 Chief complaint: Patient states: Foot swelling getting progressively worse for 2 weeks. ll1 Lower abd pain with diarrhea for 2 weeks. Frequent urination for 1 week, denies dysuria. Entire back pain. Coronavirus screen: Proceed with normal triage. Patient denies a cough. Patient denies shortness of breath or difficulty breathing. Patient denies measured and/or subjective temperature greater than 100.4F prior to today's visit. Patient denies travel on a cruise ship or to a country the [facility] currently lists as an affected area. Patient denies contact with known and/or suspected case of COVID-19. Ebola Screen: Patient denies travel to an Ebola-affected area in the 21 days before illness onset. Initial Sepsis Screen: Does the patient meet any 2 criteria? HR > 90 bpm. No. Patient's initial sepsis screen is negative. Does the patient have a suspected source of infection? Yes: Acute abdominal pain. Risk Assessment: Do you want to hurt yourself or someone else? Patient reports no desire to harm self or others. Onset of symptoms was January 23, 2020. 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 - Social history:: Smoking status: Patient reports the use of cigarette tobacco products, smokes one-half pack cigarettes per day, Patient uses alcohol, only on a social basis. Patient/guardian denies using street drugs. Screenin:08 Abuse screen: Denies threats or abuse. Denies injuries from another. Nutritional mg2 screening: No deficits noted. Tuberculosis screening: No symptoms or risk factors identified. Fall Risk IV access (20 points). Assessment: 22:07 General: Appears in no apparent distress. comfortable, Behavior is calm, cooperative. mg2 Pain: Complains of pain in back Pain radiates to abdomen Quality of pain is described as aching, Pain began gradually, Is intermittent. Neuro: Level of Consciousness is awake, alert, obeys commands, Oriented to person, place, time, situation. Cardiovascular: Capillary refill < 3 seconds Patient's skin is warm and dry. Respiratory: Airway is patent Respiratory effort is even, unlabored, Respiratory pattern is regular, symmetrical. GI: Bowel sounds present X 4 quads. Abd is soft and non tender. : Reports pain in bilateral flank(s). EENT: No signs and/or symptoms were reported regarding the EENT system. Derm: Skin is intact, is healthy with good turgor, Skin is pink, warm \T\ dry. normal. Musculoskeletal: Swelling present in right foot and left foot. Vital Signs: 18:55 BP 118 / 64; Pulse 100; Resp 19; Temp 97.3; Pulse Ox 99% ; Pain 7/10; ll1 23:39 BP 105 / 67; Pulse 95; Resp 18; Pulse Ox 100% on R/A; mg2 ED Course: 18:49 Patient arrived in ED. fj1 18:57 Triage completed. ll1 18:58 Arm band placed on. ll1 22:01 Wolfgang Hines PA is PHCP. cp 22:01 Emaunel Albarran MD is Attending Physician. cp 22:06 Milad Hummel, SOLITARIO is Primary Nurse. mg2 22:09 Patient has correct armband on for positive identification. mg2 22:09 No provider procedures requiring assistance completed. mg2 22:24 Inserted saline lock: 20 gauge in right antecubital area, using aseptic technique. mg2 Blood collected. 22:46 XRAY Chest (1 view) In Process Unspecified. EDMS 23:52 CT Stone Protocol In Process Unspecified. EDMS 02/08 01:34 IV discontinued, intact, bleeding controlled, No redness/swelling at site. Pressure mg2 dressing applied. Administered Medications: 02/07 23:10 Drug: Rocephin 1 grams Route: IV; Rate: calculated rate; Site: right antecubital; mg2 02/08 00:54 Follow up: Response: No adverse reaction; IV Status: Completed infusion mg2 02/07 23:15 Drug: TORadol - Ketorolac 15 mg Route: IVP; Site: right antecubital; mg2 02/08 00:54 Follow up: Response: No adverse reaction mg2 01:05 Drug: Flexeril 10 mg Route: PO; mg2 01:34 Follow up: Response: No adverse reaction mg2 01:05 Drug: fentaNYL (PF) 25 mcg Route: IVP; Site: right antecubital; mg2 01:33 Follow up: Response: No adverse reaction mg2 Outcome: 00:49 Discharge ordered by . marty 01:34 Discharged to home ambulatory. mg2 01:34 Condition: stable 01:34 Discharge instructions given to patient, Instructed on discharge instructions, follow up and referral plans. medication usage, Demonstrated understanding of instructions, follow-up care, medications, Prescriptions given X 3. 01:34 Patient left the ED. mg2 Signatures: Dispatcher [employer] EDMS Wolfgang Hines PA PA cp [place], Michele, RN RN mg2 Fransisco Garcias1 Wai Che RN RN ll1
--- NOTE | 2020-02-09 00:50 | EDPHYS ---
Physician Documentation [facility] Name: Nisa Muñoz Age: 29 yrs Sex: Female : 1990 Arrival Date: 02/08/2020 Time: 18:49 Bed 18 Private MD: ED Physician Emanuel Albarran HPI: 02/07 22:10 This 29 yrs old Female presents to ER via Ambulatory with complaints of Feet cp Swelling, Abdominal Pain, Back Pain. 22:10 The patient presents with abdominal pain in the lower abdomen. Onset: The cp symptoms/episode began/occurred 2 week(s) ago. Associated signs and symptoms: Pertinent positives: diarrhea, dysuria, mid and low back pain, swelling of feet, shortness of breath. Modifying factors: the symptoms are aggravated by breathing deeply, walking. 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 - Social history:: Smoking status: Patient reports the use of cigarette tobacco products, smokes one-half pack cigarettes per day, Patient uses alcohol, only on a social basis. Patient/guardian denies using street drugs. ROS: 22:15 Constitutional: Negative for body aches, chills, fever, poor PO intake. cp 22:15 Eyes: Negative for injury, pain, redness, and discharge. cp 22:15 ENT: Negative for ear pain, sore throat, difficulty swallowing, difficulty handling secretions. 22:15 Cardiovascular: Negative for chest pain, palpitations. 22:15 Respiratory: Positive for shortness of breath, Negative for cough, wheezing. 22:15 Abdomen/GI: Positive for abdominal pain, diarrhea, Negative for vomiting, constipation, black/tarry stool, rectal bleeding. 22:15 Back: Positive for pain at rest, pain with movement, of the mid back area. 22:15 : Positive for urinary symptoms, Negative for vaginal bleeding, vaginal discharge. 22:15 MS/extremity: Positive for swelling, of the right foot and left foot, Negative for injury or acute deformity, paresthesias. 22:15 Neuro: Negative for altered mental status, headache, syncope, weakness. 22:15 All other systems are negative. Exam: 22:20 Constitutional: The patient appears in no acute distress, alert, awake, cp non-diaphoretic, non-toxic, well developed, well nourished, obese. 22:20 Head/Face: Normocephalic, atraumatic. cp 22:20 Eyes: Periorbital structures: appear normal, Conjunctiva: normal, no exudate, no injection, Sclera: no appreciated abnormality, Lids and lashes: appear normal, bilaterally. 22:20 ENT: External ear(s): are unremarkable, Nose: is normal, Mouth: Lips: moist, Oral mucosa: moist, Posterior pharynx: is normal, airway is patent. 22:20 Neck: ROM/movement: is normal, is supple, without pain, no range of motions limitations, no nuchal rigidity. 22:20 Chest/axilla: Inspection: normal, Palpation: is normal, no crepitus, no tenderness. 22:20 Cardiovascular: Rate: normal, Rhythm: regular, Edema: pedal edema, that is mild, JVD: is not appreciated. 22:20 Respiratory: the patient does not display signs of respiratory distress, Respirations: normal, no use of accessory muscles, no retractions, no splinting, no tachypnea, labored breathing, is not present, Breath sounds: are clear throughout, no decreased breath sounds, no stridor, no wheezing. 22:20 Abdomen/GI: Inspection: obese Bowel sounds: active, all quadrants, Palpation: soft, in all quadrants, moderate abdominal tenderness, in the right lower quadrant and left lower quadrant, voluntary guarding, is not appreciated, involuntary guarding, is not appreciated. 22:20 Back: pain, that is moderate, of the mid back area, ROM is painful, with all movement. 22:20 Skin: no rash present. 22:20 Neuro: Orientation: to person, place \T\ time. Mentation: is normal, Motor: moves all fours, strength is normal, Sensation: is normal, Gait: is steady. 22:45 ECG was reviewed by the Attending Physician. cp Vital Signs: 18:55 BP 118 / 64; Pulse 100; Resp 19; Temp 97.3; Pulse Ox 99% ; Pain 7/10; ll1 23:39 BP 105 / 67; Pulse 95; Resp 18; Pulse Ox 100% on R/A; mg2 MDM: 22:04 Patient medically screened. 02/08 00:48 Data reviewed: vital signs, nurses notes, lab test result(s), EKG, radiologic studies, cp CT scan, plain films. 00:48 Test interpretation: by ED physician or midlevel provider: ECG, chest xray negative for cp infiltrates. Counseling: I had a detailed discussion with the patient and/or guardian regarding: the historical points, exam findings, and any diagnostic results supporting the discharge/admit diagnosis, lab results, radiology results, the need for outpatient follow up, a family practitioner, to return to the emergency department if symptoms worsen or persist or if there are any questions or concerns that arise at home. 02/07 22:07 Order name: Basic Metabolic Panel; Complete [place] 23[place]02 [facility] [place] 00:44 Interpretation: Normal except: CL 109; CA 8.4. 02/07 22:07 Order name: CBC with Diff; Complete Time: 23:08 [facility] [place] 00:44 Interpretation: Normal except: WBC 11.7. 02/07 22:07 Order name: Hepatic Function; Complete Time: 23:02 [facility] [place] 23:02 Interpretation: Normal except: BILIT 0.1; ALB 3.3; GLOB 4.3; A/G 0.8. 02/07 22:07 Order name: Lipase; Complete Time: 23:02 [facility] [place] 22:18 Order name: BNP; Complete Time: 23:20 02/07 22:18 Order name: Urine Microscopic Only; Complete Time: 23:02 02/07 23:02 Interpretation: Normal except: URBC 5-10; SQEPI 10-20. 02/07 22:18 Order name: XRAY Chest (1 view) 02/07 22:18 Order name: Magnesium; Complete Time: 23:20 02/07 22:24 Order name: Urine Dipstick--Ancillary (enter results); Complete Time: 23:02 co 02/07 23:02 Interpretation: Normal except: UBLD TRACE; U NIT POSITIVE. 02/07 22:24 Order name: Urine --Ancillary (enter results); Complete Time: 23:02 co 02/07 23:08 Order name: CT Stone Protocol 02/07 22:07 Order name: IV Saline Lock; Complete Time: 22:24 mg2 02/07 22:07 Order name: Labs collected and sent; Complete Time: 22:24 mg2 02/07 22:07 Order name: Urine Dipstick-Ancillary (obtain specimen); Complete Time: 22:24 mg2 02/07 22:07 Order name: Urine Test (obtain specimen); Complete Time: 22:24 mg2 02/07 22:18 Order name: EKG; Complete Time: 22:19 cp 02/07 22:18 Order name: EKG - Nurse/Tech; Complete Time: 22:40 cp EC/01 22:45 Rate is 77 beats/min. Rhythm is regular. ID interval is normal. QRS interval is normal. cp QT interval is normal. T waves are Inverted in lead aVR. Interpreted by me. Reviewed by me. Administered Medications: 23:10 Drug: Rocephin 1 grams Route: IV; Rate: calculated rate; Site: right antecubital; mg2 02/08 00:54 Follow up: Response: No adverse reaction; IV Status: Completed infusion mg2 02/07 23:15 Drug: TORadol - Ketorolac 15 mg Route: IVP; Site: right antecubital; mg2 02/08 00:54 Follow up: Response: No adverse reaction mg2 01:05 Drug: Flexeril 10 mg Route: PO; mg2 01:34 Follow up: Response: No adverse reaction mg2 01:05 Drug: fentaNYL (PF) 25 mcg Route: IVP; Site: right antecubital; mg2 01:33 Follow up: Response: No adverse reaction mg2 Disposition: 05:30 Co-signature as Attending Physician, Emanuel Albarran MD. pkl Disposition: 02/09/20 00:49 Discharged to Home. Impression: Urinary tract infection, site not specified, Low back pain. - Condition is Stable. - Discharge Instructions: Back Pain, Adult, Urinary Tract Infection, Adult, Heat Therapy, Back Exercises. - Prescriptions for Cyclobenzaprine 10 mg Oral Tablet - take 1 tablet by ORAL route every 8 hours As needed no driving while taking medication; 20 tablet. Tramadol 50 mg Oral Tablet - take 1 tablet by ORAL route every 8 hours as needed; 12 tablet. Bactrim DS 800- 160 mg Oral Tablet - take 1 tablet by ORAL route every 12 hours for 7 days; 14 tablet. - Medication Reconciliation Form, Thank You Letter, Antibiotic Education, Prescription Opioid Use form. - Follow up: Private Physician; When: 2 - 3 days; Reason: Recheck today's complaints. - Problem is new. - Symptoms have improved. Signatures: Dispatcher [employer] EDMS Emanuel Albarran MD MD pkl Wolfgang Hines PA PA cp Milad Hummel, RN RN mg2 Wai Che RN RN ll1 Corrections: (The following items were deleted from the chart) 00:44 02/07 23:02 Normal except: CL 109. cp cp 02/08 01:34 00:49 02/09/2020 00:49 Discharged to Home. Impression: Urinary tract infection, site mg2 not specified; Low back pain. Condition is Stable. Forms are Medication Reconciliation Form, Thank You Letter, Antibiotic Education, Prescription Opioid Use. Follow up: Private Physician; When: 2 - 3 days; Reason: Recheck today's complaints. Problem is new. Symptoms have improved. cp
[2020-02-09] MEDS ORDERED: CYCLOBENZAPRINE 10 MG TAB ONE (01:04)
[2020-02-09] MEDS ORDERED: FENTANYL CITR 100 MCG/2 ML ONE (01:04)
[2020-02-09 01:48] VITALS: TEMP 97.3
[2020-02-09 01:49] VITALS: BP 105/67; O2SAT 100
--- NOTE | 2020-02-09 17:54 | RAD REPORT ---
EXAM DESCRIPTION: Stone Protocol CLINICAL HISTORY: 29-year-old female with flank pain. Technologist note: Lower abdomen and back pain with diarrhea and frequent urination. COMPARISON: 12/03/2018. TECHNIQUE: CT of the abdomen and pelvis was performed without intravenous or oral contrast. Multipla myla reformatted images were provided. This exam was performed according to our departmental dose opti mization program which includes use of automated exposure control, adjustment of the mA and/or kV acc ording to patient size and/or use of iterative reconstruction technique. FINDINGS: Evaluation of solid organ pathology is limited secondary to lack of intravenous contrast. Within these limitations, the following observations are made. Chest: Evaluation through the lung bases reveals no focal opacity, pleural effusion or pneumothorax. Heart size is within normal limits. No pericardial effusion. Abdomen and pelvis: The liver, gallbladder, pancreas, spleen, bilateral kidneys and bilateral adrenal glands are within normal limits. The vessels are normal in caliber. No abdominopelvic lymph nodes are noted to be pathologically enlarged by CT measurement criteria. The bowel is within normal limits without abnormal bowel wall thickness or bowel dilation. No free air. No free abdominopelvic fluid collections. The appendix is within normal limits. The uter us and adnexa appear to be within normal limits of a noncontrast CT examination. Nonspecific calcific ation identified at the level of the LEFT adnexa. The osseous structures are within normal limits. Small fat-containing ventral umbilical and infraumbi lical hernia. IMPRESSION: 1. No specific acute intra-abdominal findings are noted to suggest etiology of the patient's abdomina l pain. Electronically signed by: Herminia Liang MD 02/09/2020 12:03 AM CDT Due to temporary technical issues with the PACS/Fluency reporting system, reports are being signed by the in house radiologist without review asa courtesy to ensure prompt reporting. The interpreting ra diologist is fully responsible for the content of the report.
--- NOTE | 2020-02-09 19:26 | EKG ---
Test Date: 2020-02-08 Test Time: 22:39:39 Product Support Consultant: MG MEASUREMENT RESULTS: Intervals: Rate: 77 MD: 130 QRSD: 92 QT: 382 QTc: 432 Tiline: P: 33 MD: 130 QRS: 78 T: 44 INTERPRETIVE STATEMENTS: Normal sinus rhythm Normal ECG No previous ECG available for comparison Electronically Signed On 02-09-20 19:24:03 CDT by Santi Kuhn
== END 2020-02-09 01:34 | disposition home or self-care (01) ==
LOC: ER 18:45
DX: N39.0 Urinary tract infection, site not specified (principal); F17.210 Nicotine dependence, cigarettes, uncomplicated
CPT/HCPCS: 36415; 71045; 74176; 76377; 80048; 80076; 81003; 81015; 81025; 83690; 83735; 83880; 85025; 93005; J0696; J3010